=== PATIENT | female | born 1980 | race Caucasian/White ===

== ENCOUNTER 2018-09-10 09:13 | Day surgery (SDC) | payer MEDICAID ==
[~2018-09-10] VITALS: Ht 170.2 cm; Wt 71.1 kg
[~2018-09-10 09:13] MED LIST: HYDR-4353 PO
[2018-09-10] MEDS ORDERED: LIDOcaine 1% 30ml preserv. free vial SQ STA (09:45)
[2018-09-10] MEDS ORDERED: normal saline 1000ml 1,000 ML IV PRN (09:50)
[2018-09-10] MEDS ORDERED: albumin (human) 25% 100 ML IV solution IV PRN (09:50)
[2018-09-10] MEDS ORDERED: LIDOcaine 1% (10mg/ml)w/preservative injection 20ml MDV SQ STA (10:00)
== END 2018-09-10 10:19 | disposition home or self-care (01) ==
LOC: SSTAY O 09:13
PROVIDERS: ATTEND Radiology Diagnostic Radiology
DX: R14.0 Abdominal distension (gaseous) (principal); Z85.038 Personal history of other malignant neoplasm of large intestine; Z87.891 Personal history of nicotine dependence; Z90.710 Acquired absence of both cervix and uterus; Z90.49 Acquired absence of other specified parts of digestive tract; Z79.891 Long term (current) use of opiate analgesic; Z79.899 Other long term (current) drug therapy; Z98.890 Other specified postprocedural states
CPT/HCPCS: 76705; J7030